=== PATIENT | male | born 1955 | race Caucasian/White ===

== ENCOUNTER 2022-02-24 13:39 | Emergency (ER) | payer OTHER | END 2022-02-24 15:33 | disposition home or self-care (01) | LOC: MADERS 13:39 | DX: B02.9 Zoster without complications (principal); F17.210 Nicotine dependence, cigarettes, uncomplicated | CPT/HCPCS: 99283 ==

== ENCOUNTER 2022-03-11 14:46 | Emergency (ER) | payer OTHER ==
[2022-03-11] MEDS ORDERED: Ketorolac Tromethamine 30 MG/ML VIAL ONE (15:25)
== END 2022-03-11 16:09 | disposition home or self-care (01) ==
LOC: MADERS 14:46
DX: S90.122A Contusion of left lesser toe(s) without damage to nail, initial encounter (principal); B02.9 Zoster without complications; F17.210 Nicotine dependence, cigarettes, uncomplicated; W22.8XXA Striking against or struck by other objects, initial encounter
CPT/HCPCS: 96372; J1885